=== PATIENT | female | born 1970 | race African-American/Black ===

== ENCOUNTER 2017-08-24 10:33 | Emergency (ER) | payer OTHER ==
[2017-08-24 11:08] VITALS: BP 146/82
--- NOTE | 2017-08-24 11:47 | UC ---
Skin Complaint HPI - HPI Summary HPI Summary: Patient presents with complaints of feeling a painful lump on her right flank for several months now. She states it hurts her at night when she rolls over on it. She said she went to her PCP who told her it was a fat lump and the patient wants to it be checked out by someone else. She denies injury or trauma, redness , warmth or drainage, fever, or chills. - History of Current Complaint Chief Complaint: UCWounds Time Seen by Provider: 08/24/17 11:19 Stated Complaint: LUMP ON BACK Hx Obtained From: Patient Hx Last Menstrual Period: IUD ?: No Onset/Duration: Gradual Onset, Lasting Weeks Skin Exposure Onset/Duration: Weeks Ago Onset Severity: Mild Current Severity: Moderate Location: Diffuse - right flank Aggravating Factor(s): Touch - pressure Alleviating Factor(s): Other - laying on other side, or gettin off it. Associated Signs & Symptoms: Positive: Negative - Allergy/Home Medications Allergies/Adverse Reactions: Allergies Allergy/AdvReac Type Severity Reaction Status Date / Time Penicillins [PCN] Allergy Intermediate Rash Verified 08/24/17 11:08 Nifedipine [From Procardia] Allergy Rash Verified 08/24/17 11:08 strawberries Allergy Mild Rash Uncoded 08/24/17 11:08 Home Medications: Home Medications Albuterol 2.5MG/3ML (0.083%)* [Ventolin 2.5 MG/3 ML NEB.MALLY*] 1 neb INH Q4HR PRN 08/24/17 [History Confirmed 08/24/17] Budesonide/Formote 160/4.5(NF) [Symbicort 160/4.5 (NF)] 1 - 2 puff INH DAILY PRN 08/24/17 [History Confirmed 08/24/17] Review of Systems Constitutional: Negative Skin: Other - lump under skin on right flank Eyes: Negative ENT: Negative Respiratory: Negative Cardiovascular: Negative Gastrointestinal: Negative Genitourinary: Negative Motor: Negative Neurovascular: Negative Musculoskeletal: Negative Neurological: Negative Psychological: Negative All Other Systems Reviewed And Are Negative: Yes PMH/Surg Hx/FS Hx/Imm Hx Previously Healthy: Yes Endocrine History: Diabetes Cardiovascular History: Hypertension Respiratory History: Asthma Psychological History: Bipolar Disorder Other History Of: Negative For: Anticoagulant Therapy - Surgical History Surgical History: Yes Surgery Procedure, Year, and Place: x 4 - Family History Known Family History: Positive: Cardiac Disease, Hypertension, Diabetes - Social History Occupation: Disabled Lives: Alone Alcohol Use: Occasionally Substance Use Type: None Smoking Status (MU): Current Every Day Smoker Type: Cigarettes Amount Used/How Often: 1/2ppd Length of Time of Smoking/Using Tobacco: 20+ yrs Have You Smoked in the Last Year: Yes Household Exposure Type: Cigarettes - Immunization History Most Recent Influenza Vaccination: Not UTD Physical Exam Triage Information Reviewed: Yes Appearance: Well-Appearing Vital Signs: Initial Vital Signs Temp 98.1 F 08/24/17 11:01 Pulse 85 08/24/17 11:01 Resp 18 08/24/17 11:01 BP 146/82 08/24/17 11:01 Pulse Ox 96 08/24/17 11:01 Vital Signs Reviewed: Yes Eye Exam: Normal ENT Exam: Normal Neck exam: Normal Neck: Positive: 1 Respiratory Exam: Normal Cardiovascular Exam: Normal Abdominal Exam: Normal Musculoskeletal Exam: Normal Neurological Exam: Normal Psychological Exam: Normal Skin: Positive: Other - palpable mass noted on right flank without erythema, edema or induration. Course/Dx - Course Course Of Treatment: Patient presents with complains of mass on right flank that hurts when she rolls over on it. us reveals lipoma. Patient was referred to Dr mojica for surgical consult. - Differential Diagnoses - Skin Complaint Differential Diagnoses: Other - lipoma - Diagnoses Provider Diagnoses: lipoma Discharge - Discharge Plan Condition: Stable Disposition: HOME Patient Education Materials: Soft Tissue Mass (ED), Lipoma (ED) Referrals: Rizwan Peter MD [Primary Care Provider] - Augustus Mojica MD [Medical Doctor] -
--- NOTE | 2017-08-24 12:01 | RAD ---
INDICATION: Palpable mass overlying the right flank COMPARISON: None TECHNIQUE: Real time ultrasound images of the right flank were acquired in tran scale and Doppler color flow. FINDINGS: Where the patient feels a palpable mass there is a subcutaneous well-circumscribed and avascular mass measuring 4.3 x 3.1 x 5.5 cm. IMPRESSION: Subcutaneous avascular mass measuring 5.5 cm in greatest dimension. Most likely etiology is a lipoma but other more sinister etiologies are not excluded by sonographic imaging alone.
== END 2017-08-24 12:09 | disposition home or self-care (01) ==
LOC: UCEAST 10:33
DX: D17.1 Benign lipomatous neoplasm of skin and subcutaneous tissue of trunk (principal); J45.909 Unspecified asthma, uncomplicated; Z72.0 Tobacco use
CPT/HCPCS: 76705; 81003; 99212; G0463

== ENCOUNTER 2018-05-07 08:32 | Emergency (ER) | payer OTHER ==
--- OUTSIDE RECORDS SUMMARY | 2018-05-07 08:40 | XMS REPORT ---
:1970 External Reference #:[id number] Author Organization [employer] Address [address] [place] [address] [place] [address] Phone [phone] Care Team Providers Name Role Phone Rizwan Peter MD Primary Care Physician Unavailable Payers Type Date Identification Numbers Payment Provider Subscriber Commercial Effective: Policy Number: [id number] [employer] Flores 2010 Medicaid PayID: [id number] [address] [address] [place] [address] Problems Date Description Provider Status Onset: 04/20/2015 Type 2 diabetes mellitus Rizwan Peter M.D. Active Onset: 07/04/2011 Benign essential hypertension Rizwan Peter M.D. Active Onset: 07/04/2011 Asthma without status asthmaticus Rizwan Peter M.D. Active Onset: 07/04/2011 Gastroesophageal reflux disease Rizwan Peter M.D. Active Onset: 07/04/2011 Depressive disorder Rizwan Peter M.D. Active Onset: 05/13/2013 Tobacco user Rizwan Peter M.D. Active Onset: 05/27/2013 Morbid obesity Rizwan Peter M.D. Active Onset: 08/11/2014 Diabetes mellitus Eli Holliday N.P. Active Onset: 03/10/2015 Dermal mycosis Rizwan Peter M.D. Active Onset: 04/20/2015 Disorder of lumbar disc Rizwan Peter M.D. Active Onset: 03/23/2016 Thoracic and lumbosacral neuritis Rizwan Peter M.D. Active Onset: 06/15/2016 Type 2 diabetes mellitus with Rizwan Peter M.D. Active diabetic neuropathy, unsp Onset: 09/12/2016 Breast lump Rizwan Peter M.D. Active Onset: 04/19/2017 Bipolar affective disorder, Rizwan Peter M.D. Active currently depressed, mild Onset: 12/10/2017 Insomnia Rizwan Peter M.D. Active Onset: 12/10/2017 Sleep apnea Rizwan Peter M.D. Active Onset: 02/05/2018 Mild recurrent major depression Rizwan Peter M.D. Active Onset: 04/12/2018 Candidiasis Rizwan Peter M.D. Active Onset: 04/12/2018 Allergic contact dermatitis due to Rizwan Peter M.D. Active other agents Onset: 03/10/2015 Low back pain Rizwan Peter M.D. Inactive Inactive: 05/31/2015 Onset: 12/11/2011 Obesity Rizwan Peter M.D. Inactive Inactive: 05/31/2015 Onset: 03/10/2015 Type II diabetes mellitus Rizwan Peter M.D. Inactive uncontrolled Inactive: 05/31/2015 Family History Date Family Member(s) Problem(s) Comments Mother due to Meningitis () Social History Type Date Description Comments Marital Status Single Lives With friend Occupation Unemployed Cigarette Use Current Cigarette Smoker 5-10 Cigarettes Daily Cigarette Use started age 21 ETOH Use Denies alcohol use Smoking Patient is a current smoker, Smokes 1/2 ppd x 23-24 smokes every day years Exercise Type/Frequency Exercises regularly Exercise Type/Frequency walks frequently Allergies, Adverse Reactions, Alerts Date Description Reaction Status Severity Comments 01/04/2011 Procardia rash active 05/27/2013 Penicillin active 05/27/2013 Strawberries active 12/10/2009 NKDA inactive Medications Medication Date Status Form Strength Qnty SIG Indications Ordering Provider Betamethasone 04/12 Active Cream 0.05% 50gm apply three L23.89 [place] Dipropionate /2018 times a day Pachika both hands , M.D. Clotrimazole 04/12 Active Cream 1% 90gm apply twice B37.89 Rizwan daily to the Pachikara axila , M.D. Dulera 03/21 Active Aerosol 200-5mcg/ 8.800 2 puff twice a Act gm day Alondra Peter Metformin HCL 02/28 Active Tablets ER 500mg 120ta 2 tab bid L23.89 Zsofia ER (Mod) 24HR bs Erwin, [facility] Poise Pads 02/11 Active Misc 81uni use 3 pads per ts day [place] Venegas M.D. Long Glimepiride 02/05 Active Tablets 4mg 60tab take two L23.89 s tablets by [place] mouth once a , M.DShaylee day with breakfast Zolpidem 12/10 Active Tablets 10mg 14tab 1/ to 1 tab G47.00 Zsofia Tartrate s by mouth every Erwin, night at [facility] bedtime as needed Docusate 06/21 Active Capsules 100mg 60cap 2 cap at [place] Sodium s bedtime Alondra Peter Walker Auto 04/19 Active Misc -10/15" 1unit wheeled walker M51.16 Rizwan Glides/ s with seat and [facility] Adjustment Alondra rao Holes/-10/15" Losartan 04/19 Active Tablets 25mg 30tab take 1 tablet E11.40 Rizwan Potassium s every day Alondra Peter Atorvastatin 04/19 Active Tablets 20mg 30tab take 1 tablet E11.40 [place] [facility] Oxycodone HCL 01/04 Active Tablets 10mg 90tab 1 tab 8h as M51.16 s needed Alondra Peter Metoprolol 01/04 Active Tablets 50mg 60tab take 1 tablet I10 Rizwan Tartrate s twice a day Alondra Peter Amlodipine 01/04 Active Tablets 10mg 30tab take 1 tablet I10 [place] Besylate s by mouth every Pachikara morning MShayleeDShaylee Poise Pad 12/05 Active Pads 99uni use for ts incontinenece [place] as needed, pt , M.D. uses 3/day (not [facility] brand) Freestyle Test 07/12 Active Strips 100un check bs twice its a day and as Pachikara needed e11.40 , M.D. 06/15/16 Freestyle 1005 Active Kit Check BS bid and prn E11.40 Pachikara 06/15/16 , Alondra Blood Pressure 06/15 Active Misc 1unit check bp daily I10 [place] Monitor s dx:i10 [place] Inflate Alondra Proair HFA 04/18 Active Aerosol 108(90Bas 25.5g 2 puffs ih J45.909 e) m every 4 hours Pachikara mcg/Act as needed , M.DShaylee Nebulizer 04/18 Active Device 1unit use with J45.909 s albuterol neb Pachikara solution every , M.D. 6 hours as needed for asthma flare up. Albuterol 04/18 Active Nebulizer 0.63mg/3M 75uni use 1 vial via J45.909 L ts nebulizer Pachikara every 4 hours , M.D. as needed Lancets 30G 03/10 Active Misc 30G 100un use twice L23.89 its daily to [place] cárdenas M.D. glucose. Aleve 00 Active Capsules 220mg 1-2 by mouth Unknown /0000 twice a day as needed Metformin HCL 02/05 Hx Tablets ER 1000mg 60tab 1 tab bid L23.89 [place] ER (Mod) 24HR s Pachikara - Alondra 02/12 [facility] Protective 12/21 Hx Misc 81uni use 3 pads/day Rizwan Pads ts [place] Absorbency - , M.DShaylee 02/10 [facility] Womens 12/12 Hx Misc 90uni use 3 times [place] Protective ts per day Pachikara Pads - MShayleeDShaylee Long/Ultimate 02/10 Absorbency Bupropion HCL 12/10 Hx Tablets ER 150mg 30tab once daily in F33.0 Rizwan ER (XL) 24HR s the morning Pachika - with food Alondra 02/05 Azithromycin 10/16 Hx Tablets 250mg 6tabs 2 tab today J06.9 and then 1tab Pachikara - daily , M.D. 10/21 Glimepiride 04/19 Hx Tablets 4mg 30tab Take 1 Tablet E11.40 s By Mouth Every Pachikara - Day , M.D. 02/05 Duloxetine HCL 05/[address] 20mg 30cap Take One Part s Capsule By Pachikara - Mouth In The , M.D. 08/15 Morning With Food (not taking) Oxycodone HCL 04/18 Hx Tablets 10mg 60tab 1 tab 12 as M51.16 s needed P[place] - , M.D. 01/04 Symbicort 04/18 Hx Aerosol 160-4.5mc 30.6u take 2 puffs J45.909 g/Act nits twice a day [place] - M.DShaylee 03/21 Lidocaine 04/06 Hx Ointment 5% 35.44 apply to back 0gm three times a Pachikara - day as needed. , M.D. 04/18 Duloxetine HCL 03/[address] 20mg 30cap once in the E11.40 Part s morning with Pachikara - food , M.D. 04/18 Oxycodone HCL 03/23 Hx Tablets 5mg 30tab 1 by mouth s every 12 hours Pachikara - as needed , M.D. 04/18 Gabapentin 05/10 Hx Capsules 100mg 90cap 1 tab by mouth s 3 three times [place], - a day as M.D. 03/23 needed pain Meloxicam 04/20 Hx Tablets 15mg 30tab 1 tablet po M51.87 s daily, with [place], - food M.D. 03/23 Glucose 03/10 Hx 1unit Use twice 250.02 [place] Monitor s daily to check Pachikara - blood glucose , M.D. 07/12 Glucose 0603 Hx 100un Check BS bid E11.40 Arya Monitor Test /2014 its and prn E11.40 D. [place], Strips - 06/15/16 M.DShaylee,FACP 07/12 Meloxicam 03/10 Hx Tablets 15mg 30tab once daily 719.46 s with food [place] Sandoval M.D. 03/23 Tramadol HCL 03/10 Hx Tablets 50mg 30tab three times a s day as needed. [place] - No driving , M.DShaylee 06/28 after taking tramadol because of sedating effects Glimepiride 11/26 Hx Tablets 2mg 30tab Take One L23.89 s Tablet By Pachikara - Mouth Once , M.D. 04/19 Daily In The Morning Metformin HCL 08/11 Hx Tablets ER 500mg 60tab take 2 tablets L23.89 Rizwan 24HR s by mouth every Pachikara - night at , M.DShaylee 02/05 bedtime Metformin HCL 05/19 Hx Tablets 500mg 60tab 1 by mouth s twice a day Varn, - N.P. 08/11 Azo Pill For 03/10 Hx Eli Varn, Infection SX - N.P. OTC 03/10 Fluconazole 03/10 Hx Tablets 150mg 2tabs one by mouth February repeat in Varn, - 3 days as N.P. 03/16 Clotrimazole/B 03/10 Hx Cream 1-0.05% 15gm apply 2 - 3 etamethasone times daily as Varn, Dipropionate - needed N.P. 03/17 Power Operated 06/10 Hx Use as [place] Vehicle directed [place] Sandoval M.D. 03/10 Asmanex 120 05/27 Hx Aerosol 220mcg/In 1unit 2 puffs bid 493.90 [place] Metered Doses /2012 h s [place] Sandoval M.D. 05/27 Qvar 05/27 Hx Aerosol 80mcg/Act 1unit 2puffs bid 493.90 [place] s [place] Sandoval M.D. 03/10 Losartan 05/13 Hx Tablets 100-12.5m 30tab once daily 401.9 Rizwan Potassium/Hydr /2012 g s [place] ochlorothiazid - Alondra e 05/13 Montelukast 05/13 Hx Tablets 10mg 30tab once daily 493.90 Rizwan Sodium s [place] Sandoval M.D. 03/10 Ventolin HFA 05/13 Hx Aerosol 108(90Bas 8.5un Use One Rizwan e) its Inhalation By [place] Sandoval mcg/Act Mouth Every 4 , M.DShaylee 07/ Hours For Bronchospasm Amlodipine 05/13 Hx Tablets 5mg 60tab Take 1 Tablet I10 Rizwan Besylate s Twice A Day [place] Sandoval M.D. 01/04 Flovent Diskus 04/25 Hx Aerosol 250mcg/Bl 1unit 1 puff bid 493.90 Shreya ist s Lori Jimenez M.D. 04/25 Pulmicort 04/25 Hx Aerosol 180mcg/Ac 1unit Use 2 Puffs Shreya Flexhaler t s Twice Daily Lori Jimenez M.D. 05/13 Amoxicillin/Cl 12/10 Hx Tablets 875-125mg 20tab 1 po bid 466.0 Rizwan avulanate s [place] Sandoval M.D. 04/25 Metoprolol 12/10 Hx Tablets 50mg 30tab Take One 401.1 Shreya Tartrate s Tablet By Barbara, - Mouth bid M.DShaylee 05/13 Metoprolol 12/10 Hx Tablets 50mg 20tab Take One 401.1 Rizwan Tartrate s Tablet By [place] - Mouth Two , EdsonDShaylee 05/13 Times Daily Metoprolol 12/10 Hx Tablets 50mg 60tab Take One I10 Rizwan Tartrate s Tablet By [place] - Mouth Two , M.DShaylee 01/04 Times Daily Pulmicort 09/11 Hx Aerosol 180mcg/Ac 1mon 2 puffs twice [place] t daily [place] Sandoval M.D. 04/25 Ventolin HFA 09/01 Hx Aerosol 108(90Bas 18gm inhale 1 Angelic e) mcg/ac inhalation by Lori Burleson mouth every 4 M.DShaylee 05/13 hours bronchospasm Neurontin 05/31 Hx Capsules 100mg 60cap 1-2 tab hs izabel Sandoval M.D. 12/10 Zestoretic 05/31 Hx Tablets 20-12.5mg 30tab 1 po qd 401.1 Lori Salas M.D. 05/13 Metoprolol 05/31 Hx Tablets ER 25mg 60tab t tab bid 401.1 Angelic Succinate 24HR Lori Yeung M.D. 12/10 Seroquel 01/18 Hx Tablets 50mg 2tabs 1 po qhs 311 [place] Sandoval M.D. 05/31 Lexapro 01/04 Hx Tablets 20mg 30tab once daily 311 izabel Sandoval M.D. 05/31 Ambien 01/04 Hx Tablets 10mg 30tab 1 tab hs prn Lori Salas M.D. 05/13 Prilosec 12/14 Hx Capsules 20mg 30cap [address] izabel Sandoval M.D. 04/25 Lexapro 12/14 Hx Tablets 10mg 30tab once daily 311 izabel Sandoval M.D. 01/04 Zithromax 09/12 Hx Tablets 250mg 1tabs 2tab today and 466.0 [place] Z-Aurelio 1tab daily x [place] - 4days Alondra 12/14 Prednisone 09/12 Hx Tablets 20mg 10tab 3 tab 466.0 s today,2tab Manjuikara - dailyx2 , Alondra 12/14 days,1b daily 2 days Citalopram 02/08 Hx Tablets 20mg 30tab 1 po qd 300.09 [place] Hydrobromide izabel Sandoval M.D. 12/14 Procardia XL 12/10 Hx Tablets ER 30mg 30tab 1 po qd 401.1 24HR s [place] Sandoval M.D. 12/14 Zestoretic 12/10 Hx Tablets 20-12.5mg 30tab 1 po qd 401.1 izabel Sandoval M.D. 05/31 Flovent HFA 12/10 Hx Aerosol 110mcg/Ac 1unit inhale 2 puffs 401.1 t s by mouth two [place] Sandoval times daily , Alondra 09/11 Albuterol 12/10 Hx 1unit 2 puffs up to 401.1 Inhal s qid prn [place] Sandoval M.D. 05/13 Geodon Hx Capsules 80mg 1 po q pm Unknown /0000 - 05/27 Zoloft Hx Tablets 100mg 30tab 1 po qd Unknown /0000 s - 04/25 Bupropion HCL Hx Tablets ER 150mg 30tab 1 po qd Unknown XL /0000 24HR s - 03/10 Ziprasidone Hx Capsules 80mg Unknown HCL /0000 - 12/21 Immunizations CPT Code Status Date Vaccine Lot # [id number] Given 03/23/2016 Pneumonia Vaccine [id number] Vital Signs Date Vital Result Comment 04/12/2018 Height 64 inches 5'4" Heart Rate 74 /min BP Systolic Sitting 128 mmHg BP Diastolic Sitting 76 mmHg O2 % BldC Oximetry 98 % 02/05/2018 Height 64 inches 5'4" Heart Rate 80 /min BP Systolic 126 mmHg BP Diastolic 76 mmHg O2 % BldC Oximetry 96 % 12/10/2017 Height 64 inches 5'4" Heart Rate 81 /min BP Systolic 140 mmHg BP Diastolic 80 mmHg Body Temperature 98.6 F O2 % BldC Oximetry 96 % 10/16/2017 Height 64 inches 5'4" Heart Rate 72 /min BP Systolic Sitting 128 mmHg BP Diastolic Sitting 78 mmHg Body Temperature 97.2 F O2 % BldC Oximetry 96 % 09/03/2017 Height 64 inches 5'4" Weight 320.00 lb Heart Rate 72 /min BP Systolic 142 mmHg BP Diastolic 86 mmHg Respiratory Rate 18 /min Body Temperature 96.8 F BMI (Body Mass Index) 54.9 kg/m2 06/21/2017 Weight 327.00 lb Heart Rate 67 /min BP Systolic Sitting 140 mmHg BP Diastolic Sitting 98 mmHg Body Temperature 96.9 F O2 % BldC Oximetry 98 % 04/19/2017 Weight 325.12 lb Heart Rate 73 /min BP Systolic Sitting 152 mmHg BP Diastolic Sitting 88 mmHg Body Temperature 98.1 F O2 % BldC Oximetry 98 % 01/04/2017 Heart Rate 78 /min BP Systolic Sitting 144 mmHg BP Diastolic Sitting 104 mmHg Body Temperature 97.6 F O2 % BldC Oximetry 98 % 01/02/2017 Weight 305.44 lb Heart Rate 72 /min BP Systolic Sitting 163 mmHg BP Diastolic Sitting 100 mmHg Body Temperature 98.0 F O2 % BldC Oximetry 97 % 09/12/2016 Heart Rate 76 /min BP Systolic Sitting 142 mmHg BP Diastolic Sitting 90 mmHg Body Temperature 98.3 F O2 % BldC Oximetry 99 % 08/15/2016 Height 66.5 inches 5'6.50" Weight 300.50 lb Heart Rate 71 /min BP Systolic Sitting 160 mmHg BP Diastolic Sitting 80 mmHg Body Temperature 97.8 F O2 % BldC Oximetry 98 % BMI (Body Mass Index) 47.8 kg/m2 06/15/2016 Weight 295.25 lb Heart Rate 68 /min BP Systolic Sitting 140 mmHg BP Diastolic Sitting 88 mmHg Body Temperature 97.8 F O2 % BldC Oximetry 98 % 04/18/2016 Height 65 inches 5'5" Weight 295.38 lb Heart Rate 68 /min BP Systolic Sitting 138 mmHg BP Diastolic Sitting 89 mmHg Body Temperature 97.7 F O2 % BldC Oximetry 98 % BMI (Body Mass Index) 49.1 kg/m2 03/23/2016 Height 65 inches 5'5" Weight 298.38 lb Heart Rate 72 /min BP Systolic Sitting 130 mmHg BP Diastolic Sitting 90 mmHg Body Temperature 98.1 F O2 % BldC Oximetry 98 % BMI (Body Mass Index) 49.6 kg/m2 06/28/2015 Height 65 inches 5'5" Weight 300.25 lb Heart Rate 78 /min BP Systolic Sitting 132 mmHg BP Diastolic Sitting 82 mmHg Body Temperature 97.7 F O2 % BldC Oximetry 98 % BMI (Body Mass Index) 50.0 kg/m2 04/20/2015 Height 65 inches 5'5" Weight 302.00 lb Heart Rate 86 /min Body Temperature 98.0 F O2 % BldC Oximetry 95 % BMI (Body Mass Index) 50.2 kg/m2 03/10/2015 Height 65 inches 5'5" Weight 300.25 lb Heart Rate 76 /min BP Systolic Sitting 138 mmHg BP Diastolic Sitting 90 mmHg O2 % BldC Oximetry 98 % BMI (Body Mass Index) 50.0 kg/m2 11/26/2014 Heart Rate 86 /min BP Systolic Sitting 146 mmHg BP Diastolic Sitting 84 mmHg Body Temperature 84.0 F 08/11/2014 Heart Rate 72 /min BP Systolic Sitting 130 mmHg BP Diastolic Sitting 78 mmHg Body Temperature 98.2 F O2 % BldC Oximetry 98 % 03/10/2014 Heart Rate 80 /min BP Systolic Sitting 128 mmHg BP Diastolic Sitting 80 mmHg Respiratory Rate 18 /min 05/27/2013 Height 65 inches 5'5" Weight 366.00 lb Heart Rate 73 /min BP Systolic Sitting 124 mmHg BP Diastolic Sitting 82 mmHg O2 % BldC Oximetry 97 % BMI (Body Mass Index) 60.9 kg/m2 05/13/2013 Height 65 inches 5'5" Weight 366.00 lb Heart Rate 86 /min BP Systolic Sitting 184 mmHg BP Diastolic Sitting 107 mmHg BMI (Body Mass Index) 60.9 kg/m2 04/25/2012 Height 65.5 inches 5'5.50" Heart Rate 82 /min BP Systolic Sitting 122 mmHg BP Diastolic Sitting 100 mmHg BMI (Body Mass Index) 0.5 kg/m2 12/11/2011 Height 65.5 inches 5'5.50" Weight 340.00 lb Heart Rate 68 /min BP Systolic Sitting 170 mmHg BP Diastolic Sitting 118 mmHg BMI (Body Mass Index) 55.7 kg/m2 05/31/2011 Weight 338.00 lb Heart Rate 80 /min BP Systolic Sitting 144 mmHg BP Diastolic Sitting 102 mmHg 02/07/2011 Heart Rate 72 /min BP Systolic Sitting 140 mmHg BP Diastolic Sitting 90 mmHg 01/18/2011 Weight 329.00 lb Heart Rate 68 /min BP Systolic Sitting 150 mmHg BP Diastolic Sitting 98 mmHg 01/04/2011 Heart Rate 76 /min BP Systolic 146 mmHg BP Diastolic 98 mmHg 12/14/2010 Weight 327.00 lb Heart Rate 88 /min BP Systolic Sitting 168 mmHg BP Diastolic Sitting 98 mmHg 09/12/2010 Weight 329.00 lb Heart Rate 69 /min BP Systolic Sitting 158 mmHg BP Diastolic Sitting 90 mmHg Body Temperature 96.8 F O2 % BldC Oximetry 98 % 02/08/2010 Weight 323.00 lb Heart Rate 70 /min BP Systolic Sitting 120 mmHg BP Diastolic Sitting 82 mmHg 12/10/2009 Height 64 inches 5'4" Weight 323.00 lb Heart Rate 86 /min BP Systolic Sitting 170 mmHg BP Diastolic Sitting 100 mmHg BMI (Body Mass Index) 55.4 kg/m2 Results Test Date Test Result H/L Range Note Laboratory test finding 04/12/2018 Hemoglobin A1c 8.8 High 5-7 Laboratory test finding 02/05/2018 Hemoglobin A1c 10.1 High 5-7 Lipid Profile (Trig/Chol/HDL) 10/29/2017 Triglycerides 72 mg/dL 1 Cholesterol 146 mg/dL 2 HDL Cholesterol 44.3 mg/dL 3 LDL Cholesterol 87 mg/dL 4 Comp Metabolic Panel 10/29/2017 Sodium 136 mmol/L 133-145 Potassium 4.2 mmol/L 3.5-5.0 Chloride 103 mmol/L 101-111 Co2 Carbon Dioxide 28 mmol/L 22-32 Anion Gap 5 mmol/L 2-11 Glucose 177 mg/dL High 70-100 Blood Urea Nitrogen 13 mg/dL 6-24 Creatinine 0.75 mg/dL 0.51-0.95 BUN/Creatinine Ratio 17.3 8-20 Calcium 9.4 mg/dL 8.6-10.3 Total Protein 6.5 g/dL 6.4-8.9 Albumin 3.8 g/dL 3.2-5.2 Globulin 2.7 g/dL 2-4 Albumin/Globulin Ratio 1.4 1-3 Total Bilirubin 0.50 mg/dL 0.2-1.0 Alkaline Phosphatase 60 U/L 34-104 Alt 8 U/L 7-52 Ast 11 U/L Low 13-39 Egfr Non- 83.9 >60 Egfr 108.0 >60 5 Laboratory test finding 10/16/2017 Hemoglobin A1c 10.5 High 5-7 Poc Urinalysis 08/24/2017 Poc Glucose, Urine 1+ Negative Poc Bilirubin, Urine 1+ Negative Poc Ketone, Urine 1+ Negative Poc Specific Coker, Urine 1.025 1.010-1.030 Poc Blood, Urine 2+ Negative Poc pH, Urine 5.5 5-9 Poc Protein, Urine 1+ Negative Poc Urobilinogen, Urine 0.2 Negative Poc Nitrite, Urine Negative Negative Poc Leukocytes, Urine Negative Negative Poc Color, Urine Other Poc Clarity, Urine Clear 6 Laboratory test finding 04/19/2017 Hemoglobin A1c 7.8 High 5-7 Laboratory test finding 09/12/2016 Hemoglobin A1c 6.2 5-7 Comp Metabolic Panel 08/11/2016 Sodium 136 mmol/L 133-145 Potassium 4.7 mmol/L 3.5-5.0 Chloride 104 mmol/L 101-111 Co2 Carbon Dioxide 26 mmol/L 22-32 Anion Gap 6 mmol/L 2-11 Glucose 99 mg/dL 70-100 Blood Urea Nitrogen 16 mg/dL 6-24 Creatinine 0.80 mg/dL 0.51-0.95 BUN/Creatinine Ratio 20.0 8-20 Calcium 9.3 mg/dL 8.6-10.3 Total Protein 6.6 g/dL 6.4-8.9 Albumin 3.9 g/dL 3.2-5.2 Globulin 2.7 g/dL 2-4 Albumin/Globulin Ratio 1.4 1-3 Total Bilirubin 0.50 mg/dL 0.2-1.0 Alkaline Phosphatase 49 U/L 34-104 Alt 21 U/L 7-52 Ast 15 U/L 13-39 Egfr Non- 78.3 >60 Egfr 100.7 >60 7 Lipid Profile (Trig/Chol/HDL) 08/11/2016 Triglycerides 65 mg/dL 8 Cholesterol 154 mg/dL 9 HDL Cholesterol 54.5 mg/dL 10 LDL Cholesterol 87 mg/dL 11 Urine Microalbumin Random 08/11/2016 Urine Creatinine 91.75 mg/dL Ur Microalbumin (mg/L) 30.5 mg/L Urine Microalbumin/Creatinine 33.2 ug/mg High <31 Laboratory test finding 08/11/2016 TSH (Thyroid Stim 1.05 mcIU/mL 0.34- 5.60 12 Horm) Cortisol 10.50 ?g/dL 13 Vitamin B12 And Folate Serum 08/11/2016 Vitamin B12 313 pg/mL 180-914 14 Folic Acid (Folate) 9.92 ng/mL >3.99 15 Laboratory test finding 03/23/2016 Hemoglobin A1c 6.4 5-7 Comp Metabolic Panel 05/24/2015 Sodium 137 mmol/L 133-145 Potassium 4.6 mmol/L 3.5-5.0 Chloride 105 mmol/L 101-111 Co2 Carbon Dioxide 25 mmol/L 22-32 Anion Gap 7 mmol/L 2-11 Glucose 92 mg/dL 70-100 Blood Urea Nitrogen 16 mg/dL 6-24 Creatinine 0.81 mg/dL 0.51-0.95 BUN/Creatinine Ratio 19.8 8-20 Calcium 9.5 mg/dL 8.6-10.3 Total Protein 6.8 g/dL 6.4-8.9 Albumin 4.1 g/dL 3.2-5.2 Globulin 2.7 g/dL 2-4 Albumin/Globulin Ratio 1.5 1-3 Total Bilirubin 0.60 mg/dL 0.2-1.0 Alkaline Phosphatase 60 U/L 34-104 Alt 9 U/L 7-52 Ast 10 U/L Low 13-39 Egfr Non- 77.5 >60 Egfr 99.7 >60 16 Urine Microalbumin Random 05/24/2015 Ur Microalbumin (mg/L) 10.0 mg/L Urine Creatinine 147.55 mg/dL Urine Microalbumin/Creatinine 6.7 ug/mg <31 Lipid Profile (Trig/Chol/HDL) 05/24/2015 Triglycerides 56 mg/dL 17 Cholesterol 135 mg/dL 18 HDL Cholesterol 43.8 mg/dL 19 LDL Cholesterol 80 mg/dL 20 Laboratory test finding 03/10/2015 Hemoglobin A1c 6.7 5-7 Laboratory test finding 11/26/2014 Hemoglobin A1c 11.2 High 5-7 Laboratory test finding 08/11/2014 Hemoglobin A1c 9.9 High 5-7 Comp Metabolic Panel 04/27/2014 Sodium 131 mmol/L Low 133-145 Potassium 4.1 mmol/L 3.7-5.6 Chloride 102 mmol/L 101-111 Co2 Carbon Dioxide 21 mmol/L Low 22-32 Anion Gap 8 mmol/L 2-11 Glucose 476 mg/dL High 70-100 Blood Urea Nitrogen 11 mg/dL 6-24 Creatinine 0.77 mg/dL 0.51-0.95 BUN/Creatinine Ratio 14.3 8-20 Calcium 9.4 mg/dL 8.6-10.3 Total Protein 7.0 g/dL 6.4-8.9 Albumin 3.7 g/dL 3.2-5.2 Globulin 3.3 g/dL 2-4 Albumin/Globulin Ratio 1.1 1-3 Total Bilirubin 0.40 mg/dL 0.2-1.0 Alkaline Phosphatase 76 U/L 34-104 Alt 12 U/L 7-52 Ast 12 U/L Low 13-39 Egfr Non- 82.6 >60 Egfr 106.2 >60 21 Urinalysis Profile 04/27/2014 Urine Color Straw Urine Appearance Clear Urine Specific Coker 1.032 High 1.010-1.030 Urine pH 5.0 5-9 Urine Urobilinogen Negative Negative Urine Ketones Negative Negative Urine Protein Negative Negative Urine Leukocytes 2+ Negative Urine Blood 1+ Negative Urine Nitrite Negative Negative Urine Bilirubin Negative Negative Urine Glucose 3+(>=500 mg/dL) Negative Urine White Blood Cell 1+(6-10/hpf) Absent Urine Red Blood Cell 1+(3-5/hpf) Absent Urine Bacteria Absent Absent Urine Squamous Epithelial Cell Present Absent Urine Culture And Sensitivities 04/27/2014 Urine Culture (SEE NOTE) 22 Affirm Vaginal Dna Probe 04/27/2014 Affirm Vaginal Dna Probe (SEE NOTE) 23 HSV/VZV Derm PCR 04/27/2014 hs/VZ Source labia HSV 1 PCR Negative Negative HSV 2 PCR Positive Negative 24 Varicella Zoster Source labia Varicella Zoster Result Negative Negative 25 GC/Chlamydia Amplified Rna 04/27/2014 GC/Chlamydia Rna (SEE NOTE) 26 Comp Metabolic Panel 12/11/2011 Sodium 137 mmol/L 135-145 Potassium 4.9 mmol/L 3.5-5.0 Chloride 104 mmol/L 101-111 Co2 (Carbon Dioxide) 30.0 mmol/L 22-32 Anion Gap 3.0 mmol/L 2-11 27 Glucose 85 mg/dL 70-100 BUN 11 mg/dL 6-24 Creatinine 1.1 mg/dL 0.50-1.40 One Over Creatinine 0.90 BUN/Creatinine Ratio 10.0 8-20 Calcium 9.5 mg/dL 8.1-9.9 Total Protein 6.9 GM/DL 6.2-8.1 Albumin 3.7 GM/DL 3.6-5.4 Globulin 3.2 GM/DL 2-4 Albumin/Globulin Ratio 1.2 1-3 Bilirubin Total 0.3 mg/dL Low 0.4-1.5 28 Alkaline Phosphatase 58 U/L 30-110 Alt (SGPT) 13 U/L Low 14-54 Ast (Sgot) 14 U/L 12-42 eGFR Non- 55.3 > 60 eGFR 71.1 > 60 29 Comp Metabolic Panel 01/04/2011 Sodium 138 mmol/L 135-145 Potassium 4.4 mmol/L 3.5-5.0 Chloride 103 mmol/L 101-111 Co2 (Carbon Dioxide) 26.0 mmol/L 22-32 Anion Gap 9.0 mmol/L 2-11 30 Glucose 99 mg/dL 70-100 BUN 9 mg/dL 6-24 Creatinine 0.90 mg/dL 0.50-1.40 One Over Creatinine 1.10 BUN/Creatinine Ratio 10.0 8-20 Calcium 9.5 mg/dL 8.1-9.9 Total Protein 6.2 GM/DL 6.2-8.1 Albumin 3.7 GM/DL 3.6-5.4 Globulin 2.5 GM/DL 2-4 Albumin/Globulin Ratio 1.5 1-3 Bilirubin Total 0.5 mg/dL 0.4-1.5 31 Alkaline Phosphatase 56 U/L 30-110 Alt (SGPT) 13 U/L Low 14-54 Ast (Sgot) 14 U/L 12-42 eGFR Non- 70.1 > 60 eGFR 90.1 > 60 32 Laboratory test finding 01/04/2011 TSH 1.12 MIU/ML 0.34-5.60 Lipid Profile (Trig/Chol/HDL) 01/04/2011 Triglyceride 42 mg/dL 40-200 Cholesterol 149 mg/dL Less Than 200 33 High Density Lipoprotein 60 mg/dL 40-60 34 Cholesterol/HDL Ratio 2.48 AVERAGE 1-4.44 Low Density Lipoprotein 81 mg/dL Less Than 100 35 Laboratory test finding 01/19/2010 Rubella Screen IMMUNE Immune 36 Rubeola Igg AB Positive Negative 36, 37 Mumps Virus AB Igg Igm 01/19/2010 Mumps Virus AB, Igg Positive Negative 36, 38 Index Value 4.63 0.00-0.89 36, 39 Mumps Virus AB, Igm Negative Negative 36 Index Value 0.02 0.00-0.79 36, 40 1 Desirable: <150 Borderline High: 150-199 High: 200-499 Very High: >500 2 Desirable: <200 Borderline High: 200-239 High: >239 3 Low: <40 Desirable: 40-60 High: >60 4 Desirable: <100 Near Optimal: 100-129 Borderline High: 130-159 High: 160-189 Very High: >189 5 Because ethnic data is not always readily available, this report includes an eGFR for both -Americans and non- Americans. The National Kidney Disease Education Program (NKDEP) does not endorse the use of the MDRD equation for patients that are not between the ages of 18 and 70, are , have extremes of body size, muscle mass, or nutritional status, or are non- or non-. According to the National Kidney Foundation, irrespective of diagnosis, the stage of the disease is based on the level of kidney function: Stage Description GFR(mL/min/1.73 m(2)) 1 Kidney damage with normal or decreased GFR 90 2 Kidney damage with mild decrease in GFR 60-89 3 Moderate decrease in GFR 30-59 4 Severe decrease in GFR 15-29 5 Kidney failure <15 (or dialysis) 6 Informatics Manager: [id number] Because ethnic data is not always readily available, this report includes an eGFR for both -Americans and non- Americans. The National Kidney Disease Education Program (NKDEP) does not endorse the use of the MDRD equation for patients that are not between the ages of 18 and 70, are , have extremes of body size, muscle mass, or nutritional status, or are non- or non-. According to the National Kidney Foundation, irrespective of diagnosis, the stage of the disease is based on the level of kidney function: Stage Description GFR(mL/min/1.73 m(2)) 1 Kidney damage with normal or decreased GFR 90 2 Kidney damage with mild decrease in GFR 60-89 3 Moderate decrease in GFR 30-59 4 Severe decrease in GFR 15-29 5 Kidney failure <15 (or dialysis) 8 Desirable <150 Borderline high 150-199 High 200-499 Very High >500 9 Desirable <200 Borderline high 200-239 High >239 10 Low <40 Desirable: 40-60 High: >60 11 Desirable: <100 mg/dL Near Optimal: 100-129 mg/dL Borderline High: 130-159 mg/dL High: 160-189 mg/dL Very High: >189 mg/dL 12 FASTING 12 HOUR 13 AM 8.7-22.4 PM <10 14 Normal Range 180 to 914 Indeterminate Range 145 to 180 Deficient Range <145 15 FASTING 12 HOUR 16 Because ethnic data is not always readily available, this report includes an eGFR for both -Americans and non- Americans. The National Kidney Disease Education Program (NKDEP) does not endorse the use of the MDRD equation for patients that are not between the ages of 18 and 70, are , have extremes of body size, muscle mass, or nutritional status, or are non- or non-. According to the National Kidney Foundation, irrespective of diagnosis, the stage of the disease is based on the level of kidney function: Stage Description GFR(mL/min/1.73 m(2)) 1 Kidney damage with normal or decreased GFR 90 2 Kidney damage with mild decrease in GFR 60-89 3 Moderate decrease in GFR 30-59 4 Severe decrease in GFR 15-29 5 Kidney failure <15 (or dialysis) 17 Desirable <150 Borderline high 150-199 High 200-499 Very High >500 18 Desirable <200 Borderline high 200-239 High >239 19 Low <40 Desirable: 40-60 High: >60 20 Desirable: <100 mg/dL Near Optimal: 100-129 mg/dL Borderline High: 130-159 mg/dL High: 160-189 mg/dL Very High: >189 mg/dL 21 Because ethnic data is not always readily available, this report includes an eGFR for both -Americans and non- Americans. The National Kidney Disease Education Program (NKDEP) does not endorse the use of the MDRD equation for patients that are not between the ages of 18 and 70, are , have extremes of body size, muscle mass, or nutritional status, or are non- or non-. According to the National Kidney Foundation, irrespective of diagnosis, the stage of the disease is based on the level of kidney function: Stage Description GFR(mL/min/1.73 m(2)) 1 Kidney damage with normal or decreased GFR 90 2 Kidney damage with mild decrease in GFR 60-89 3 Moderate decrease in GFR 30-59 4 Severe decrease in GFR 15-29 5 Kidney failure <15 (or dialysis) 22 RUN DATE: 05/01/14 [facility] LAB LIVE PAGE 1 RUN TIME: [address] [place] [address] Specimen Inquiry Name: MARE FLORES : [address]: Alfredito Mazariegos DO Acct: [id number] Unit: [id number] AGE: 43 Location: ED Re04/27/14 SEX: F Status: DEP ER SPEC: [id number] BONILLA: 04/27/[address]: Jacob Solorio MD REQ: [id number] RECD: 04/27/14 STATUS: AMANUEL MORENO DR: [facility] Rizwan Peter MD _ SOURCE: URINE SPDESC: ORDERED: Urine Culture Procedure Result Verified Site Urine Culture Final 05/01/14- 909 ML Organism 1 PATRICIA ALBICANS [place] Count 25-50,000 (Moderate) CFU/ML Organism 2 NORMAL TONIA [place] Count 25-50,000 (Moderate) CFU/ML END OF REPORT * ML=Testing performed at Main Lab DEPARTMENT OF PATHOLOGY, [employer] [place], [place] [address] Rigoberto Haddad M.D. Director CLIA # [id number] RUN DATE: 04/27/14 [facility] LAB LIVE PAGE 1 RUN TIME: [address] [employer] [place], [place] [address] Specimen Inquiry Name: MARE FLORES : [address]: Alfredito Mazariegos DO Acct: [id number] Unit: [id number] AGE: 43 Location: ED Re04/27/14 SEX: F Status: REG ER SPEC: [id number] BONILLA: 04/27/[address]: Alfredito Mazariegos DO REQ: [id number] RECD: 04/27/14 STATUS: AMANUEL MORENO DR: Rizwan Peter MD _ SOURCE: VAGINAL SPDESC: ORDERED: Affirm Procedure Result Verified Site Affirm Vaginal DNA Probe Final 04/27/14- 1535 ML Organism 1 Negative Trichomonas Organism 2 Negative Gardnerella Organism 3 POSITIVE PATRICIA The presence of G. vaginalis, although suggestive, is not diagnostic for bacterial vaginosis. Results should be interpreted in conjunction with other clinical and laboratory data available. Women with vaginal discharge should be evaluated for risk factors of cervicitis and pelvic inflammatory disease, toxic shock syndrome (S.aureus), and if present, evaluated for organisms not included in this assay such as N. gonorrhoeae, C. trachomatis, Mobiluncus, Mycoplasma and/or Prevotella. Mixed infections may occur. The performance of this test on patient specimens collected during or immediately after antimicrobial therapy is unknown. The presence or absence of Patricia species, G. vaginalis or T. vaginalis cannot be used as a test for therapeutic success or failure. END OF REPORT * ML=Testing performed at [facility] Lab DEPARTMENT OF PATHOLOGY, [address] [place] [address] Rigoberto Haddad M.D. Director [facility] # [id number] 24 Analyte Specific Reagent: This test was developed and its performance characteristics determined by [facility]. It has not been cleared or approved by the U.S. Food and Drug Administration. 25 Laboratory developed test. Test Performed by: [facility] - [address] [address] Loss Prevention Investigator: Malachi Ruby III, M.D. 26 RUN DATE: 04/28/14 [facility] LAB LIVE PAGE 1 RUN TIME: [address] [place] [address] Specimen Inquiry Name: MARE FLORES Nasim : [address]: Alfredito Mazariegos DO Acct: [id number] Unit: [id number] AGE: 43 Location: ED Re04/27/14 SEX: F Status: DEP ER SPEC: [id number] BONILLA: 04/27/[address]: Alfredito Mazariegos DO REQ: [id number] RECD: 04/27/14 STATUS: AMANUEL MORENO DR: Rizwan Peter MD _ SOURCE: ENDOCERVIX SPDESC: ORDERED: GC/Chlam RNA Procedure Result Verified Site Chlamydia Trachomatis RNA Final 04/28/14- 1432 ML NEGATIVE for Chlamydia trachomatis rRNA GC (N. gonorrhoeae) RNA Final 04/28/14- 1420 ML NEGATIVE for Neisseria gonorrhoeae rRNA A negative result does not preclude the presence of a C. trachomatis or N. gonorrhoeae infection because results are dependent on adequate specimen collection, absence of inhibitors, and sufficient rRNA to be detected. Test results may be affected by improper specimen collection, improper storage, technical error, or specimen mixup. Limitations of the Procedure: The Aptima Combo 2 Assay is not intended for the evaluation of suspected sexual abuse or for other medico-legal indications. For those patients for whom a false positive result may have adverse psychosocial impact, the CDC recommends retesting by a method using an alternate technology. Therapeutic failure or success cannot be determined with the Aptima Combo 2 Assay since nucleic acid may persist following appropriate antimicrobial therapy. Results from the Aptima Combo 2 Assay should be interpreted in conjunction with other laboratory and clinical data available to the clinican. Performance characteristics for detecting C. trachomatis and CONTINUED ON NEXT PAGE * ML=Testing performed at Main Lab DEPARTMENT OF PATHOLOGY, [address] [place] [address] Rigoberto Haddad M.D. Director [facility] # [id number] RUN DATE: 04/28/14 [facility] LAB LIVE PAGE 2 RUN TIME: [address] [place] [address] Specimen Inquiry Patient: MARE FLORES N [id number] (Continued) Specimen: [id number] Collected: 04/27/14 Received: 04/27/14 (Continued) Procedure Result Verified Site GC (N. gonorrhoeae) RNA Final (continued) 04/28/14- 1419 N. gonorrhoeae are derived from high prevalence populations. Positive results in low prevalence populations should be interpreted carefully with the understanding that the likelihood of a false positive may be higher than a true positive. END OF REPORT * ML=Testing performed at Main Lab DEPARTMENT OF PATHOLOGY, [address] [place] [address] Rigoberto Haddad M.D. Director [facility] # [id number] 27 Anion gap measurement may be of limited value in the presence of any alkalosis, especially in a combined acid base disorder. . 28 A metabolite of Naproxen, O-desmethylnaproxen, has been shown to interfere with the Jendrassik-Manton method for measuring total bilirubin. Samples from patients who have taken Naproxen have shown spurious elevation in total bilirubin levels. 29 Because ethnic data is not always readily available, this report includes an eGFR for both -Americans and non- Americans. The National Kidney Disease Education Program (NKDEP) does not endorse the use of the MDRD equation for patients that are not between the ages of 18 and 70, are , have extremes of body size, muscle mass, or nutritional status, or are non- or non-. According to the National Kidney Foundation, irrespective of diagnosis, the stage of the disease is based on the level of kidney function: Stage Description GFR(mL/min/1.73 m(2)) 1 Kidney damage with normal or decreased GFR 90 2 Kidney damage with mild decrease in GFR 60-89 3 Moderate decrease in GFR 30-59 4 Severe decrease in GFR 15-29 5 Kidney failure <15 (or dialysis) 30 Anion gap measurement may be of limited value in the presence of any alkalosis, especially in a combined acid base disorder. . 31 A metabolite of Naproxen, O-desmethylnaproxen, has been shown to interfere with the Jendrassik-Manton method for measuring total bilirubin. Samples from patients who have taken Naproxen have shown spurious elevation in total bilirubin levels. 32 Because ethnic data is not always readily available, this report includes an eGFR for both -Americans and non- Americans. The National Kidney Disease Education Program (NKDEP) does not endorse the use of the MDRD equation for patients that are not between the ages of 18 and 70, are , have extremes of body size, muscle mass, or nutritional status, or are non- or non-. According to the National Kidney Foundation, irrespective of diagnosis, the stage of the disease is based on the level of kidney function: Stage Description GFR(mL/min/1.73 m(2)) 1 Kidney damage with normal or decreased GFR 90 2 Kidney damage with mild decrease in GFR 60-89 3 Moderate decrease in GFR 30-59 4 Severe decrease in GFR 15-29 5 Kidney failure <15 (or dialysis) 33 CHOLESTEROL INTERPRETATION: Desirable: Less than 200 MG/DL Borderline-High Risk: 200-239 MG/DL High-Risk: 240 MG/DL and over 34 HDL INTERPRETATION: Undesirable: High Risk: Less than 40 MG/DL Desirable: Low Risk: Greater than 60 MG/DL 35 LDL INTERPRETATION: Low Risk Optimal Level: LDL Less than 100 MG/DL Near or Above Optimal: LDL 100-129 MG/DL Borderline High Risk: LDL 130-159 MG/DL High Risk: LDL 160-189 MG/DL Very High Risk: LDL Greater than 189 MG/DL 36 FAX RESULTS TO [employer] AT FAX NUMBER [phone] 37 Test Performed by: [facility] Dpt of Lab Med and Pathology [address] [place] [address] Loss Prevention Investigator: Malachi Ruby III, M.D. 38 Results suggest response to immunization or prior exposure to the virus. 39 Test Performed by: [facility] Dpt of Lab Med and Pathology [address] [place] [address] Loss Prevention Investigator: Malachi Ruby III, M.D. 40 Test Performed by: [facility] Dpt of Lab Med and Pathology [address] [place] [address] Loss Prevention Investigator: Malachi Ruby III, M.D. Procedures Date CPT Code Description Status Comment 02/06/2018 Diabetic Retinal Eye Exam Completed 09/22/2016 Mammogram Completed 07/21/2015 Diabetic Retinal Eye Exam Completed [place] 06/05/2015 Mammogram Completed declined 03/23/2015 12026 Pulmonary Function><Bronchodil Completed 06/05/2013 Mammogram Completed 12/27/2009 Mammogram Completed Encounters Type Date Location Provider CPT E/M Dx Office Visit 02/05/2018 8:00a [facility] Rizwan Peter, [address] E11.65 Medicine - [address] [place] G47.00 F33.0 J45.909 M51.16 Office Visit 12/10/2017 9:00a [facility] Rizwan Peter [address]3242 E11.65 Medicine - [place] Cantu G47.00 G47.30 E66.01 F33.0 F17.210 Office Visit 10/16/2017 10:40a [facility] Rizwan Peter 04999 E11.40 Medicine - [place] Cantu J45.909 M51.16 J06.9 Office Visit 09/03/2017 11:30a [facility] [place] [address] D17.1 [employer] E66.01 Office Visit 06/21/2017 8:00a [facility] Rizwan Peter M.D. [address] I[address] - [address] E11.40 F31.31 M51.16 Office Visit 04/19/2017 8:20a [facility] Marvin Peter 57120 E11.40 Medicine - [place] Cantu I10 E66.01 F31.31 M25.562 M51.16 F17.210 Z68.41 Office Visit 01/04/2017 8:20a [facility] Rizwan Peter M.D. 33005 J20.9 Medicine - [address] E11.40 M51.16 J45.909 I10 N63 E66.01 Office Visit 09/12/2016 8:40a [facility] Rizwan Peter 67969 E11.40 Medicine - [place]u M51.16 J45.909 N63 Office Visit 06/15/2016 10:40a [facility] Rizwan Peter 17621 M51.16 Medicine - [address] [place] I10 E11.40 Z12.39 E66.01 J45.909 Office Visit 04/18/2016 9:40a [facility] Rizwan Peter, 79224 M51.16 Medicine - [address] [place] J45.909 Office Visit 03/23/2016 8:40a [facility] Rizwan Peter M.D. 33200 I10 - [address] M51.16 F17.210 E11.40 E66.01 Z23 F31.76 Z68.42 Office Visit 06/28/2015 1:00p [facility] Medicine Caio Lockett M.D. 13759 M51.87 - [address] Z72.0 M54.5 Office Visit 04/20/2015 1:40p [facility] Rizwan Peter, [address] 722.93 Medicine - [address] [place] 250.00 724.2 Office Visit 03/10/2015 9:40a [facility] Rizwan Peter 63092 250.02 Medicine Lori Disla M.D. 401.1 493.90 111.8 724.2 719.46 Office Visit 11/26/2014 11:00a [facility] Medicine Eli Holliday, N.P. 90961 250.02 - [place] 401.1 V15.81 Office Visit 08/11/2014 11:20a [facility] Medicine Eli Holliday, N.P. 98169 250.02 - [place] 782.0 799.9 401.1 Office Visit 05/27/2013 10:20a [facility] Medicine Rizwan Peter 54783 401.1 - Naif Cantu 278.01 493.90 Office Visit 05/13/2013 1:00p [facility] Medicine Rizwan Peter 60350 401.9 - Naif Cantu 493.90 278.00 530.81 305.1 V76.10 Office Visit 04/25/2012 11:45a [facility] Medicine Shreya Jimenez 48753 493.90 - Na[place] 401.9 305.1 Office Visit 12/11/2011 2:00p [facility] Medicine Rizwan Peter 66665 401.1 - Naif Cantu 493.90 530.81 466.0 278.00 Office Visit 05/31/2011 8:40a DO Not Use [employer]er [employer]or AT Rizwan Peter M.D. 32950 401.1 [place] 493.90 530.81 278.00 780.52 719.46 Office Visit 02/07/2011 9:00a DO Not Use [employer] AT Rizwan Peter M.D. 99817 401.1 [place] 493.90 780.52 278.00 Office Visit 01/18/2011 1:20p DO Not Use [employer] AT Rizwan Peter M.D. 15183 311 [place] Office Visit 01/04/2011 11:40a DO Not Use Sew[employer] Contractor AT Rizwan Peter M.D. 50312 311 [place] 780.52 401.1 Office Visit 12/14/2010 2:20p DO Not Use Sewer Contractor AT Rizwan Peter M.D. 87608 401.1 [place] 493.90 311 530.81 278.00 Office Visit 09/12/2010 9:40a DO Not Use Sewer Contractor AT Rizwan Peter M.D. 81744 466.0 [place] 401.1 493.90 311 305.1 Office Visit 02/08/2010 9:20a DO Not Use Sewer Contractor AT Igor Montgomery, 05502 401.1 Barbara Cantu 493.90 300.09 Office Visit 12/10/2009 11:00a DO Not Use Sewer Contractor AT Igor Montgomery, 38164 401.1 [place] 493.90 300.09 719.46 611.72 Plan of Care Future Appointment(s):04/15/2018 2:00 pm - Rizwan Peter M.D. at [facility] Medicine - [address]04/12/2018 - Rizwan Peter M.D.L23.89 Allergic contact dermatitis due to other agentsNew Medication:Betamethasone Dipropionate 0.05 %Follow up:as qxfdpvvzyE24.89 Other sites of candidiasisNew Medication: Clotrimazole 1 %Comments:Use ircvqpcqtrhdtfH28.65 Type 2 diabetes mellitus with hyperglycemiaComments:Diabetes better controlledGoals:Goal Hemoglobin A1c is less than 7.0%. Goal Blood pressure is less than 140/90. Goal LDL (bad cholesterol) is less than 70.
--- OUTSIDE RECORDS SUMMARY | 2018-05-07 08:40 | XMS REPORT ---
:1970 External Reference #:[id number] Author Organization [facility] Address [address] [place] [address] [place] [address] Phone [phone] Care Team Providers Name Role Phone Rizwan Peter MD Primary Care Physician Unavailable Payers Type Date Identification Numbers Payment Provider Subscriber Commercial Effective: Policy Number: [id number] Nixon/[employer] Mare Flores 2010 Medicaid PayID: [id number] [address] [address] [place] [address] Problems Date Description Provider Status Onset: 04/20/2015 [...] Active Cream 0.05% 50gm apply three L23.89 Rizwan Dipropionate /2018 times a day Pachika both hands , M.D. Clotrimazole 04/12 Active Cream 1% 90gm apply twice B37.89 Raymond daily to the Pachikara axila , M.D. Dulera 03/21 Active Aerosol 200-5mcg/ 8.800 2 puff twice a Act gm day Alondra Peter Metformin HCL 02/28 Active Tablets ER 500mg 120ta 2 tab bid L23.89 Zsofia ER (Mod) 24HR bs Erwin, [facility] Poise Pads 02/11 Active Misc 81uni use 3 pads per ts day [place] Venegas M.D. Long Glimepiride 02/05 Active Tablets 4mg 60tab take two L23.89 s tablets by Rome mouth once a , M.DShaylee day with breakfast Zolpidem 12/10 Active Tablets 10mg 14tab 1/ to 1 tab G47.00 Zsofia Tartrate s by mouth every Erwin, night at [facility] bedtime as needed Docusate 06/21 Active Capsules 100mg 60cap 2 cap at Rizwan Sodium s bedtime Alondra Peter Walker Auto 04/19 Active Misc -10/15" 1unit wheeled walker M51.16 Rizwan Glides/ s with seat and [facility] Adjustment Alondra rao Holes/-10/15" Losartan 04/19 Active Tablets 25mg 30tab take 1 tablet E11.40 Rizwan Potassium s every day Alondra Peter Atorvastatin 04/19 Active Tablets 20mg 30tab take 1 tablet E11.40 Rizwan [facility] Oxycodone HCL 01/04 Active Tablets 10mg 90tab 1 tab 8h as M51.16 s needed Alondra Peter Metoprolol 01/04 Active Tablets 50mg 60tab take 1 tablet I10 Raymond Tartrate s twice a day Alondra Peter Amlodipine 01/04 Active Tablets 10mg 30tab take 1 tablet I10 Rizwan Besylate s by mouth every Pachikara morning MShayleeDShaylee Poise Pad 12/05 Active Pads 99uni use for ts incontinenece Rome as needed, pt , M.D. uses 3/day (not [facility] brand) Freestyle Test 07/12 Active Strips 100un check bs twice its a day and as Pachikara needed e11.40 , M.D. 06/15/16 Freestyle 10/05 Active Kit Check BS bid and prn E11.40 Pachikara 06/15/16 , Alondra Blood Pressure 06/15 Active Misc 1unit check bp daily I10 Rizwan Monitor s dx:i10 Rome Inflate Alondra Proair [...] its daily to Rome cárdenas M.D. glucose. Metformin HCL 02/05 Hx Tablets ER 1000mg 60tab 1 tab bid L23.89 Rizwan ER (Mod) 24HR s Pachika - MShayleeDShaylee 02/12 [facility] Protective 12/21 Hx Misc 81uni use 3 pads/day Raymond Pads ts Pachikara Absorbency - , M.D. 02/10 [facility] Womens 12/12 Hx Misc 90uni use 3 times Rizwan Protective 2018 ts per day Pachikara Pads - , MShayleeDShaylee Long/Ultimate 02/10 Absorbency Bupropion HCL 12/10 Hx Tablets ER 150mg 30tab once daily in F33.0 Raymond ER (XL) 24HR s the morning Pachikara - with food , MMaria Luisa 02/05 Azithromycin 10/16 Hx Tablets 250mg 6tabs 2 tab today J06.9 and then 1tab Pachikara - daily , M.D. 10/21 Glimepiride 04/19 Hx Tablets 4mg 30tab Take 1 Tablet E11.40 s By Mouth Every Pachikara - Day , M.D. 02/05 Duloxetine HCL 05/[address] 20mg 30cap Take One Part s Capsule By Pachikara - Mouth In The , M.D. 08/15 Morning Food (not taking) Oxycodone HCL 04/18 Hx Tablets 10mg 60tab 1 tab 12 as M51.16 s needed Pachikara - , M.D. 01/04 Symbicort 04/18 Hx Aerosol 160-4.5mc 30.6u take 2 puffs J45.909 g/Act nits twice a day Pachikara - , M.D. 03/21 Lidocaine 04/06 Hx Ointment 5% 35.44 [...] Glucose 03/10 Hx 1unit Use twice 250.02 Rizwan Monitor s daily to check Pachikara - blood glucose , M.D. 07/12 Glucose 03/10 Hx 100un Check BS bid E11.40 Arya Monitor Test /2014 its and prn E11.40 Luis Fernando Cameron, Strips - 06/15/16 M.DShaylee,FACP 07/12 Meloxicam 03/10 Hx Tablets 15mg 30tab once daily 719.46 s with food Rome Sandoval M.D. 03/23 Tramadol HCL 03/10 Hx Tablets 50mg 30tab three times a s day as needed. Rome - No driving , M.D. 06/28 after taking tramadol because of sedating effects Glimepiride 11/26 Hx Tablets 2mg 30tab Take One L23.89 s Tablet By Pachikara - Mouth Once , M.D. 04/19 Daily In The Morning Metformin HCL 08/11 Hx Tablets ER 500mg 60tab take 2 tablets L23.89 24HR s by mouth every Pachikara - night at , M.D. 02/05 bedtime Metformin HCL 05/19 Hx Tablets 500mg 60tab 1 by mouth s twice a day Varn, - N.P. 08/11 Azo Pill For 03/10 Hx Eli Varn, Infection SX - N.P. OTC 03/10 Fluconazole 03/10 Hx Tablets 150mg 2tabs one by mouth February repeat in Varn, - 3 days as N.P. 03/16 needed Clotrimazole/B 03/10 Hx Cream 1-0.05% 15gm apply 2 - 3 etamethasone times daily as Varn, Dipropionate - needed N.P. 03/17 Power Operated 06/10 Hx Use as directed Rome Sandoval M.D. 03/10 Asmanex 120 05/27 Hx Aerosol 220mcg/In 1unit 2 puffs bid 493.90 Raymond Metered Doses h izabel Sandoval M.D. 05/27 Qvar 05/27 Hx Aerosol 80mcg/Act 1unit 2puffs bid 493.90 izabel Sandoval M.D. 03/10 Losartan 05/13 Hx Tablets 100-12.5m 30tab once daily 401.9 Raymond Potassium/Hydr g izabel Peter ochlorothiazid - , M.D. e 05/13 Montelukast 05/13 Hx Tablets 10mg 30tab once daily 493.90 Raymond Sodium s [place] Sandoval M.D. 03/10 Ventolin HFA 05/13 Hx Aerosol 108(90Bas 8.5un Use One e) its Inhalation By Rome Sandoval mcg/Act Mouth Every 4 , M.D. 07/12 Hours For /2016 Bronchospasm Amlodipine 05/13 Hx Tablets 5mg 60tab Take 1 Tablet I10 Rizwan Besylate s Twice A Day [place] Sandoval M.D. 01/04 Flovent Diskus 04/25 Hx Aerosol 250mcg/Bl 1unit 1 puff bid 493.90 Shreya ist Lori Salas M.D. 04/25 Pulmicort 04/25 Hx Aerosol 180mcg/Ac 1unit Use 2 Puffs Shreya Flexhaler t s Twice Daily Lori Jimenez M.D. 05/13 Amoxicillin/Cl 12/10 Hx Tablets 875-125mg 20tab 1 po bid 466.0 Raymond avulanate s [place] Potassium Alondra Sandoval 04/25 Metoprolol 12/10 Hx Tablets 50mg 30tab Take One 401.1 Shreya Tartrate s Tablet By Barbara - Anna bid M.DShaylee 05/13 Metoprolol 12/10 Hx Tablets 50mg 20tab Take One 401.1 Raymond Tartrate s Tablet By Rome - Anna Two , MShayleeDShaylee 05/13 Times Daily Metoprolol 12/10 Hx Tablets 50mg 60tab Take One I10 Raymond Tartrate s Tablet By Rome - Mouth Two , M.DShaylee 01/04 Times Daily Pulmicort 09/11 Hx Aerosol 180mcg/Ac 1mon 2 puffs twice Raymond Flexhal t daily [place] Sandoval M.D. 04/25 Ventolin HFA 09/01 Hx Aerosol 108(90Bas 18gm inhale 1 Angelic e) mcg/ac inhalation by Sarah Beth, - mouth every 4 M.D. 08/06 hours for /2013 bronchospasm Neurontin 05/31 Hx Capsules 100mg 60cap [...] Tablets 250mg 1tabs 2tab today and 466.0 Raymond Z-Aurelio 1tab daily x Rome - 4days Alondra 12/14 Prednisone 09/12 Hx Tablets 20mg 10tab 3 tab 466.0 s today,2tab Manjuikara - dailyx2 Alondra 12/14 days,1tab daily 2 days Citalopram 02/08 Hx Tablets 20mg 30tab 1 po qd 300.09 Raymond Hydrobromide izabel Sandoval M.D. 12/14 Procardia XL 12/10 Hx Tablets ER 30mg 30tab 1 po qd 401.1 24HR izabel Sandoval M.D. 12/14 Zestoretic 12/10 Hx Tablets 20-12.5mg 30tab 1 po qd 401.1 s Rome Sandoval M.D. 05/31 Flovent HFA 12/10 Hx Aerosol 110mcg/Ac 1unit inhale 2 puffs 401.1 t s by mouth two Rome - times daily , M.DShaylee 09/11 Albuterol 12/10 Hx 1unit 2 puffs up to 401.1 Raymond Inhal s qid prn [place] Sandoval M.D. 05/13 Geodon Hx Capsules 80mg 1 po q pm Unknown /0000 - 05/27 Zoloft Hx Tablets 100mg 30tab 1 po qd Unknown /0000 s - 04/25 Bupropion HCL Hx Tablets ER 150mg 30tab 1 po qd Unknown XL /0000 24HR s - 03/10 Ziprasidone Hx Capsules 80mg Unknown HCL /0000 - 12/21 Aleve Hx Capsules 220mg 1-2 by mouth Unknown /0000 twice a day as - needed 04/15 Immunizations CPT Code Status Date Vaccine Lot # [id number] Given 03/23/2016 Pneumonia Vaccine [id number] Vital Signs Date Vital Result Comment 04/15/2018 Height 64 inches 5'4" Weight 318.00 lb Heart Rate 66 /min BP Systolic 130 mmHg BP Diastolic 82 mmHg O2 % BldC Oximetry 97 % BMI (Body Mass Index) 54.6 kg/m2 04/12/2018 Height 64 inches 5'4" Heart Rate [...] Poc Ketone, Urine 1+ Negative Poc Specific [place], Urine 1.025 1.010-1.030 Poc Blood, Urine 2+ [...] finding 08/11/2014 Hemoglobin A1c 9.9 High 5-7 Urinalysis Profile 04/27/2014 Urine Color Straw Urine Appearance Clear Urine Specific [place] 1.032 High 1.010-1.030 Urine pH 5.0 5-9 [...] And Sensitivities 04/27/2014 Urine Culture (SEE NOTE) 21 Comp Metabolic Panel 04/27/2014 Sodium 131 mmol/L [...] Egfr Non- 82.6 >60 Egfr 106.2 >60 22 Affirm Vaginal Dna Probe 04/27/2014 Affirm Vaginal Dna Probe (SEE NOTE) 23 GC/Chlamydia Amplified Rna 04/27/2014 GC/Chlamydia Rna (SEE NOTE) 24 HSV/VZV Derm PCR 04/27/2014 hs/VZ Source labia HSV 1 PCR Negative Negative HSV 2 PCR Positive Negative 25 Varicella Zoster Source labia Varicella Zoster Result Negative Negative 26 Comp Metabolic Panel 12/11/2011 Sodium 137 [...] 5 Kidney failure <15 (or dialysis) 6 Mat Maker: [id number] 7 Because ethnic data is not always [...] 160-189 mg/dL Very High: >189 mg/dL 21 RUN DATE: 05/01/14 [facility] LAB LIVE PAGE 1 RUN TIME: [address] [place] [address] Specimen Inquiry Name: MARE FLORES : [address]: Alfredito Mazariegos DO Acct: [id number] Unit: [id number] AGE: 43 Location: ED Re04/27/14 SEX: F Status: DEP ER SPEC: [id number] BONILLA: 04/27/14 [facility] DR: Jacob Solorio MD REQ: [id number] RECD: 04/27/14 STATUS: AMANUEL MORENO DR: [facility] Rizwan Peter MD _ SOURCE: URINE SPDESC: ORDERED: Urine Culture Procedure Result Verified Site Urine Culture Final 05/01/14- 0910 ML Organism 1 PATRICIA ALBICANS [place] Count 25-50,000 (Moderate) CFU/ML Organism 2 NORMAL TONIA [place] Count 25-50,000 (Moderate) CFU/ML END OF REPORT * ML=Testing performed at Main Lab DEPARTMENT OF PATHOLOGY, [address] [place] [address] Rigoberto Haddad M.D. Director [facility] # [id number] 22 Because ethnic data is not always readily [...] 15-29 5 Kidney failure <15 (or dialysis) 23 RUN DATE: 04/27/14 [facility] LAB LIVE PAGE 1 RUN TIME: [address] [place] [address] Specimen Inquiry Name: MARE FLORES : [address]: Alfredito Mazariegos DO Acct: [id number] Unit: [id number] AGE: 43 Location: ED Re04/27/14 SEX: F Status: REG ER SPEC: [id number] BONILLA: 04/27/14 [facility] DR: Alfredito Mazariegos DO REQ: [id number] RECD: 04/27/14 STATUS: [facility] : Rizwan Peter MD _ SOURCE: VAGINAL SPDESC: [...] performed at Main Lab DEPARTMENT OF PATHOLOGY, [facility] [employer] [place], [place] [address] Rigoberto Haddad M.D. Director [facility] # [id number] RUN DATE: 04/28/14 [facility] LAB LIVE PAGE 1 RUN TIME: 1432 [facility] [employer] [place], [place] [address] Specimen Inquiry Name: MARE FLORES : [address]: Alfredito Mazariegos DO Acct: [id number] Unit: [id number] AGE: 43 Location: ED Re04/27/14 SEX: F Status: DEP ER SPEC: [id number] BONILLA: 04/27/14 [facility] DR: Alfredito Mazariegos DO REQ: [id number] RECD: 04/27/14 STATUS: AMANUEL MORENO DR: Rizwan Peter MD _ SOURCE: ENDOCERVIX SPDESC: ORDERED: [place]/Chlam RNA Procedure Result Verified Site Chlamydia Trachomatis [...] result may have adverse psychosocial impact, the [facility] recommends retesting by a method using an [...] performed at Main Lab DEPARTMENT OF PATHOLOGY, [address] [place] [address] Rigoberto Haddad M.D. Director [facility] # [id number] RUN DATE: 04/28/14 [facility] LAB LIVE PAGE 2 RUN TIME: [address] [place] [address] Specimen Inquiry Patient: MARE FLORES Nasim [id number] (Continued) Specimen: [id number] Collected: 04/27/14 Received: 04/27/14 (Continued) Procedure Result Verified Site GC (N. gonorrhoeae) RNA Final (continued) 04/28/14- 1419 N. gonorrhoeae are derived from high prevalence populations. Positive results in low prevalence populations should be interpreted carefully with the understanding that the likelihood of a false positive may be higher than a true positive. END OF REPORT * ML=Testing performed at [facility] Lab DEPARTMENT OF PATHOLOGY, [address] [place] [address] Rigoberto Haddad M.D. Director [facility] # [id number] 25 Analyte Specific Reagent: This test was developed and its performance characteristics determined by [facility]. It has not been cleared or approved by the U.S. Food and Drug Administration. 26 Laboratory developed test. Test Performed by: [place] [address] Telephone Directory Deliverer: Malachi Ruby III, M.D. 27 Anion gap measurement may be of limited value in the presence of any alkalosis, especially in a combined acid base disorder. . 28 A metabolite of Naproxen, O-desmethylnaproxen, has been shown to interfere with the Jendrassik-Fellows method for measuring total bilirubin. Samples from [...] has been shown to interfere with the Jendrassik-Taylor method for measuring total bilirubin. Samples from [...] than 189 MG/DL 36 FAX RESULTS TO [employer] AT FAX NUMBER [phone] 37 Test Performed by: [facility] Dpt of Lab Med and Pathology [address] [place] [address] Telephone Directory Deliverer: Malachi Ruby III, M.D. 38 Results suggest response to immunization or prior exposure to the virus. 39 Test Performed by: [facility] Dpt of Lab Med and Pathology [address] [place] [address] Telephone Directory Deliverer: Malachi Ruby III, M.D. 40 Test Performed by: [facility] Dpt of Lab Med and Pathology [address] [place] [address] Telephone Directory Deliverer: Malachi Ruby III, M.D. Procedures Date CPT Code Description Status Comment 02/06/2018 Diabetic Retinal Eye Exam Completed 09/22/2016 Mammogram Completed 07/21/2015 Diabetic Retinal Eye Exam Completed [place] 06/05/2015 Mammogram Completed declined 03/23/2015 70827 Pulmonary Function><Bronchodil Completed 06/05/2013 Mammogram Completed 12/27/2009 Mammogram Completed Encounters Type Date Location Provider CPT E/M Dx Office Visit 02/05/2018 8:00a [facility] Internal Rizwan Peter, [address]93 E11.65 Medicine - [place] Carloz Cantu G47.00 F33.0 J45.909 M51.16 Office Visit 12/10/2017 9:00a [facility] Internal Rizwan Peter 29058 E11.65 Medicine - [place] Carloz Cantu G47.00 G47.30 E66.01 F33.0 F17.210 Office Visit 10/16/2017 10:40a [facility] Internal Rizwan Peter 43374 E11.40 Medicine - [place] Carloz Cantu J45.909 M51.16 J06.9 Office Visit 09/03/2017 11:30a [facility] [place] [address] D17.1 Bra[employer] Pattern [employer]ter E66.01 Office Visit 06/21/2017 8:00a [facility] Internal Medicine Rizwan Peter M.D. [address]96 I[address] - [address] E11.40 F31.31 M51.16 Office Visit 04/19/2017 8:20a [facility] Internal Rizwan Peter 41818 E11.40 Medicine - [place] Carloz Cantu I10 E66.01 F31.31 M25.562 M51.16 F17.210 Z68.41 Office Visit 01/04/2017 8:20a Jackie Peter M.D. 96939 J20.9 Medicine - [address] E11.40 M51.16 J45.909 I10 N63 E66.01 Office Visit 09/12/2016 8:40a [facility] Marvin Peter 51437 E11.40 Medicine - [address] M.DShaylee M51.16 J45.909 N63 Office Visit 06/15/2016 10:40a [facility] Internal Rizwan Peter, 44079 M51.16 Medicine - [address] M.D. I10 E11.40 Z12.39 E66.01 J45.909 Office Visit 04/18/2016 9:40a [facility] Internal Rizwan Peter [address]20 M51.16 Medicine - [address] M.DShaylee J45.909 Office Visit 03/23/2016 8:40a [facility] Internal Medicine Rizwan Peter M.D. 71879 I10 - [address] M51.16 F17.210 E11.40 E66.01 Z23 F31.76 Z68.42 Office Visit 06/28/2015 1:00p [facility] Internal Medicine Caio Lockett M.D. 04832 M51.87 - [address] Z72.0 M54.5 Office Visit 04/20/2015 1:40p [facility] Internal Rizwan Peter [address] 722.93 Medicine - [address] Quin.DShaylee 250.00 724.2 Office Visit 03/10/2015 9:40a [facility] Internal Rizwan Peter 95945 250.02 Medicine Lori Disla M.D. 401.1 493.90 111.8 724.2 719.46 Office Visit 11/26/2014 11:00a [facility] Internal Medicine Eli Holliday, N.P. 13522 250.02 - [place] 401.1 V15.81 Office Visit 08/11/2014 11:20a [facility] Internal Medicine Eli Holliday, N.P. 52740 250.02 - [place] 782.0 799.9 401.1 Office Visit 05/27/2013 10:20a [facility] Internal Medicine Rizwan Peter 90967 401.1 - Naif Cantu 278.01 493.90 Office Visit 05/13/2013 1:00p [facility] Internal Medicine Rizwan Peter 20738 401.9 - Naif Cantu 493.90 278.00 530.81 305.1 V76.10 Office Visit 04/25/2012 11:45a [facility] Internal Medicine Shreya Jimenez, 74351 493.90 - Naif Cantu 401.9 305.1 Office Visit 12/11/2011 2:00p [facility] Internal Medicine Rizwan Peter 26597 401.1 - Naif Cantu 493.90 530.81 466.0 278.00 Office Visit 05/31/2011 8:40a DO Not Use Braid Pattern Setter AT Rizwan Peter M.D. 57316 401.1 [place] 493.90 530.81 278.00 780.52 719.46 Office Visit 02/07/2011 9:00a DO Not Use Braid Pattern Setter AT Rizwan Peter M.D. 94309 401.1 [place] 493.90 780.52 278.00 Office Visit 01/18/2011 1:20p DO Not Use Braid Pattern Setter AT Rizwan Peter M.D. 56187 311 [place] Office Visit 01/04/2011 11:40a DO Not Use Braid Pattern Setter AT Rizwan Peter M.D. 61824 311 [place] 780.52 401.1 Office Visit 12/14/2010 2:20p DO Not Use Braid Pattern Setter AT Rizwan Peter M.D. 64548 401.1 [place] 493.90 311 530.81 278.00 Office Visit 09/12/2010 9:40a DO Not Use Braid Pattern Setter AT Rizwan Peter M.D. 38150 466.0 [place] 401.1 493.90 311 305.1 Office Visit 02/08/2010 9:20a DO Not Use Braid Pattern Setter AT Igor Montgomery 56939 401.1 Barbara aCntu 493.90 300.09 Office Visit 12/10/2009 11:00a DO Not Use Braid Pattern Setter AT Igor [place], 13542 401.1 Barbara Cantu 493.90 300.09 719.46 611.72 Plan of Care Future Appointment(s):07/16/2018 8:40 am - Rizwan Peter M.D. at [facility] Internal Medicine - [address]04/15/2018 - Rizwan Peter M.D.Z00.01 Encounter for general adult medical exam w abnormal findingsComments:You should have yearly Flu shot and T dap every 10 years. Exercise 30mts/day 5 times a week,Use sun screen, to prevent skin cancer discussed.Self breast exam once a month to feel for lumps or bumpsI suggest mammogram every 1-3 yrs.Follow up:3 months
[2018-05-07 08:50] VITALS: BP 143/86
== END 2018-05-07 09:50 | disposition left against medical advice (07) ==
LOC: UCEAST 08:32
DX: H93.92 Unspecified disorder of left ear (principal); Z53.21 Procedure and treatment not carried out due to patient leaving prior to being seen by health care provider

== ENCOUNTER 2018-10-19 12:21 | Emergency (ER) | payer OTHER ==
[2018-10-19 12:46] VITALS: BP 140/80
--- NOTE | 2018-10-19 13:00 | UC ---
Throat Pain/Nasal Rd HPI - HPI Summary HPI Summary: cold sx began at Kaitlynn time---that seems to be resolving but yesica has left ear pain radiating in to throat - History of Current Complaint Chief Complaint: UCGeneralIllness Stated Complaint: THROAT PAIN Time Seen by Provider: 10/19/18 12:41 Hx Obtained From: Patient Hx Last Menstrual Period: IUD ?: No Onset/Duration: Sudden Onset, Lasting Days - 2, Still Present Severity: Moderate Pain Intensity: 7 Pain Scale Used: 0-10 Numeric Cough: Nonproductive Associated Signs & Symptoms: Negative: Sinus Discomfort, Nasal Discharge - Allergies/Home Medications Allergies/Adverse Reactions: Allergies Allergy/AdvReac Type Severity Reaction Status Date / Time nifedipine [From Procardia] Allergy Rash Verified 05/07/18 08:46 Penicillins Allergy Rash Verified 05/07/18 08:46 strawberries Allergy Mild Rash Uncoded 05/07/18 08:46 PMH/Surg Hx/FS Hx/Imm Hx Previously Healthy: No Endocrine History: Diabetes Cardiovascular History: Hypertension Other History Of: Negative For: Anticoagulant Therapy - Surgical History Surgical History: Yes Surgery Procedure, Year, and Place: x 5. BLT - Family History Known Family History: Positive: Cardiac Disease, Hypertension, Diabetes - Social History Occupation: Unemployed Lives: With Family Alcohol Use: Occasionally Substance Use Type: None Smoking Status (MU): Current Every Day Smoker Type: Cigarettes Amount Used/How Often: 1/2ppd Length of Time of Smoking/Using Tobacco: 20+ yrs Have You Smoked in the Last Year: Yes Household Exposure Type: Cigarettes - Immunization History Most Recent Influenza Vaccination: Not UTD Review of Systems All Other Systems Reviewed And Are Negative: Yes Constitutional: Positive: Negative Skin: Positive: Negative Eyes: Positive: Negative ENT: Positive: Sore Throat - left, Ear Ache - left Respiratory: Positive: Cough Cardiovascular: Positive: Negative Gastrointestinal: Positive: Negative Genitourinary: Positive: Negative Motor: Positive: Negative Neurovascular: Positive: Negative Musculoskeletal: Positive: Negative Neurological: Positive: Negative Psychological: Positive: Negative Is Patient Immunocompromised?: No Physical Exam Triage Information Reviewed: Yes Appearance: Well-Appearing, No Pain Distress, Obese Vital Signs: Initial Vital Signs Temp 98.6 F 10/19/18 12:28 Pulse 100 10/19/18 12:28 Resp 18 10/19/18 12:28 BP 140/80 10/19/18 12:28 Pulse Ox 96 10/19/18 12:28 Vital Signs Reviewed: Yes Eye Exam: Normal Eyes: Positive: Conjunctiva Clear ENT Exam: Normal ENT: Positive: Normal ENT inspection, Hearing grossly normal, Pharynx normal, TMs normal, Uvula midline. Negative: Nasal congestion, Nasal drainage, Tonsillar swelling, Tonsillar exudate, Trismus, Muffled voice, Hoarse voice, Dental tenderness, Sinus tenderness Dental Exam: Normal Neck exam: Normal Neck: Positive: Supple, Nontender, No Lymphadenopathy Respiratory Exam: Normal Respiratory: Positive: Chest non-tender, Lungs clear, Normal breath sounds, No respiratory distress, No accessory muscle use Cardiovascular Exam: Normal Cardiovascular: Positive: RRR, No Murmur, Pulses Normal, Brisk Capillary Refill Musculoskeletal Exam: Normal Musculoskeletal: Positive: Strength Intact, ROM Intact, No Edema Neurological Exam: Normal Neurological: Positive: Alert, Muscle Tone Normal Psychological Exam: Normal Skin Exam: Normal Diagnostics - Laboratory Diagnostic Studies Completed/Ordered: RST (-) Throat Pain/Nasal Course/Dx - Course Assessment/Plan: increase fluids, follow bp and BS with pcp, nicotine cesasation information, mucinex d, flonase, naproxen--- - Differential Dx/Diagnosis Provider Diagnosis: Nicotine dependence, Hypertension, Viral illness Discharge - Sign-Out/Discharge Documenting (check all that apply): Patient Departure All imaging exams completed and their final reports reviewed: No Studies - Discharge Plan Condition: Stable Disposition: HOME Prescriptions: Fluticasone NASAL SPRAY 50MCG* [Flonase NASAL SPRAY 50MCG*] 2 spray BOTH NARES DAILY #1 btl Guaifenesin/Pseudo 600/60(NF) [Mucinex D 600/60 (NF)] 1 tab PO Q12H PRN #20 tab PRN Reason: congestion/cough Naproxen Sodium [Naproxen Sodium 500 MG TAB] 500 mg PO BID PRN #30 tab PRN Reason: Pain Patient Education Materials: How to Stop Smoking (ED), Earache (ED), Hypertension (ED) Referrals: Rizwan Peter MD [Primary Care Provider] - 2 Weeks - Billing Disposition and Condition Condition: STABLE Disposition: Home - Attestation Statements Provider Attestation: I was available for consult. This patient was seen by the KARLI. The patient was not presented to, seen by, or examined by me. -Rafael
== END 2018-10-19 13:14 | disposition home or self-care (01) ==
LOC: UCEAST 12:21
DX: B34.9 Viral infection, unspecified (principal); I10 Essential (primary) hypertension; Z88.1 Allergy status to other antibiotic agents; Z88.0 Allergy status to penicillin; F17.210 Nicotine dependence, cigarettes, uncomplicated
CPT/HCPCS: 87651; 99212; G0463

== ENCOUNTER 2019-06-20 08:53 | Emergency (ER) | payer OTHER ==
[2019-06-20 09:02] VITALS: BP 149/82
--- NOTE | 2019-06-20 09:31 | UC ---
Knee Pain HPI - HPI Summary HPI Summary: The patient is a 48-year-old female with greater than one week history of right knee pain and swelling. She states it feels like her right knee will buckle and give way on her. She has known arthritis of both knees. She denies any fever or chills. She does have a history of gout. - History of Current Complaint Chief Complaint: UCLowerExtremity Stated Complaint: KNEE PAIN Time Seen by Provider: 06/20/19 09:22 Hx Obtained From: Patient Hx Last Menstrual Period: tubal ligation Onset/Duration: Gradual Onset, Lasting Days Severity Initially: Mild Severity Currently: Mild Pain Intensity: 4 Pain Scale Used: 0-10 Numeric Character: Dull Aggravating Factor(s): Movement, Weight Bearing Alleviating Factor(s): Rest Associated Signs And Symptoms: Positive: Swelling - Allergies/Home Medications Allergies/Adverse Reactions: Allergies Allergy/AdvReac Type Severity Reaction Status Date / Time nifedipine [From Procardia] Allergy Rash Verified 06/20/19 09:01 Penicillins Allergy Rash Verified 06/20/19 09:01 strawberries Allergy Mild Rash Uncoded 06/20/19 09:01 PMH/Surg Hx/FS Hx/Imm Hx Previously Healthy: Yes Endocrine History: Diabetes Cardiovascular History: Hypertension Other History Of: Negative For: Anticoagulant Therapy - Surgical History Surgical History: Yes Surgery Procedure, Year, and Place: x 5. BLT - Family History Known Family History: Positive: Cardiac Disease, Hypertension, Diabetes - Social History Alcohol Use: Weekly Substance Use Type: Marijuana Substance Use Comment - Amount & Last Used: once a month Smoking Status (MU): Current Every Day Smoker Type: Cigarettes Amount Used/How Often: 1/2ppd Length of Time of Smoking/Using Tobacco: 20+ yrs Have You Smoked in the Last Year: Yes Household Exposure Type: Cigarettes - Immunization History Most Recent Influenza Vaccination: Not UTD Review of Systems All Other Systems Reviewed And Are Negative: Yes Constitutional: Positive: Negative Skin: Positive: Negative Eyes: Positive: Negative ENT: Positive: Negative Respiratory: Positive: Negative Cardiovascular: Positive: Negative Gastrointestinal: Positive: Negative Genitourinary: Positive: Negative Musculoskeletal: Positive: Arthralgia - R knee Neurological: Positive: Negative Psychological: Positive: Negative Physical Exam Triage Information Reviewed: Yes Appearance: Well-Appearing, No Pain Distress, Well-Nourished Vital Signs: Initial Vital Signs Temp 97.7 F 06/20/19 08:56 Pulse 71 06/20/19 08:56 Resp 18 06/20/19 08:56 BP 149/82 06/20/19 08:56 Pulse Ox 99 06/20/19 08:56 Vital Signs Reviewed: Yes ENT: Positive: Hearing grossly normal. Negative: Nasal congestion, Nasal drainage Neck: Positive: Supple, Nontender, No Lymphadenopathy Respiratory: Positive: Lungs clear, Normal breath sounds, No respiratory distress Cardiovascular: Positive: RRR, No Murmur Musculoskeletal: Positive: Other: - Right knee: stable joint , large effusion Neurological: Positive: Alert Psychological Exam: Normal Skin Exam: Normal Diagnostics - Radiology No standard instances Radiology Interpretation Completed By: Radiologist Summary of Radiographic Findings: Right knee- large effusion, mild DJD Knee Pain Course/Dx - Differential Dx/Diagnosis Provider Diagnosis: Right knee buckling, Effusion, right knee Discharge ED - Sign-Out/Discharge Documenting (check all that apply): Patient Departure All imaging exams completed and their final reports reviewed: Yes - Discharge Plan Condition: Stable Disposition: HOME Patient Education Materials: Knee Pain (ED), Knee Immobilizer (ED) Referrals: Monse Leonard MD [Primary Care Provider] - Esvin Turner MD [Medical Doctor] - As Soon As Possible - Billing Disposition and Condition Condition: STABLE Disposition: Home
== END 2019-06-20 10:40 | disposition home or self-care (01) ==
LOC: UCEAST 08:53
DX: M25.461 Effusion, right knee (principal); I10 Essential (primary) hypertension; E11.9 Type 2 diabetes mellitus without complications; F17.210 Nicotine dependence, cigarettes, uncomplicated; Z88.0 Allergy status to penicillin
CPT/HCPCS: 99212; G0463